=== PATIENT | male | born 1950 ===

== ENCOUNTER 2018-06-27 00:31 | Inpatient (IN) | payer SELFPAY ==
[2018-06-27] MEDS ORDERED: KETAMINE 100 MG/ML (5ML VIAL) ONE (00:42)
[2018-06-27] MEDS ORDERED: Rocuronium Bromide 10 MG/ML (10ML VIAL) ONE (00:42)
[2018-06-27 00:45] LABS: Hemoglobin 6.9 g/dL (14.0-18.0); Mean Corpuscular HGB CONC 28.7 g/dL (32.0-36.0); Mean Corpuscular Hemoglobin 19.4 pg (27.0-31.0); Mean Corpuscular Volume 67.6 fL (78.0-98.0); Mean Platelet Volume 9.2 fL (7.4-10.4); Platelet Count 446 thou/uL (130-400); RBC Distribution Width 16.3 % (11.5-14.5); Red Blood Cell (RBC) Count 3.56 mill/uL (4.70-6.10); White Blood Cell (WBC) Count 10.3 thou/uL (4.8-10.8)
[2018-06-27] MEDS ORDERED: DOPamine 400 MG/D5W 250 ML 0 ML ONE (00:47)
[2018-06-27] MEDS ORDERED: Atropine Sulfate 1 mg/10 ml Syringe ONE (00:47)
[2018-06-27 00:50] LABS: INR-International Normal Ratio 1.1; PTT 31.2 SEC (22.9-36.1); Prothrombin Time 14.4 SEC (12.0-14.7)
[2018-06-27 00:58] LABS: ALT (SGPT) 8 U/L (8-55); AST (SGOT) 12 U/L (5-34); Albumin 3.5 g/dL (3.4-4.8); Alkaline Phosphatase 100 U/L (40-150); Anion Gap 14 mmol/L (10-20); BUN (Urea Nitrogen) 18 mg/dL (8.4-25.7); Bilirubin, Total 0.4 mg/dL (0.2-1.2); CK (CPK) 70 U/L (30-200); Calc. Creatinine Clearance 0 mL/min (70-130); Calcium 8.8 mg/dL (7.8-10.44); Carbon Dioxide 21 mmol/L (23-31); Chloride 105 mmol/L (98-107); Estimated GFR-MDRD 89; Glucose 203 mg/dL (80-115); Potassium 3.6 mmol/L (3.5-5.1); Protein, Total 6.5 g/dL (5.8-8.1); Sodium 136 mmol/L (136-145)
[2018-06-27 01:04] LABS: #Basophils 0.1 thou/uL (0.0-0.2); #Eosinphils 0.7 thou/uL (0.0-0.7); #Lymphocytes 1.7 thou/uL (1.20-3.40); #Neutrophils 6.8 thou/uL (1.40-6.50); %Basophils 0.8 % (0.0-1.0); %Eosinophils 6.7 % (0.0-10.0); %Lymphocytes 16.7 % (21.0-51.0); %Monocytes 9.8 % (0.0-10.0); %Neutrophils 65.9 % (42.0-75.0); Anisocytosis SLIGHT = 6-15 cells (100X) (0-5/hpf); Hypochromia MODERATE=16-30 cells (100X) (0-5/hpf); MDiff Complete? YES; Microcytosis SLIGHT = 6-15 cells (100X) (0-5/hpf); Reflex for Review?? YES
[2018-06-27 01:36] LABS: CKMB 2.1 ng/mL (0-6.6)
[2018-06-27] MEDS ORDERED: Heparin 10,000 UNITS/1 ML VIAL ONE ×2 (01:47→03:37)
[2018-06-27] MEDS ORDERED: Norepinephrine 4 MG/4 ML VIAL ONE ×2 (01:48→01:53)
[2018-06-27] MEDS ORDERED: Heparin 25,000 units/D5W 500 ML ONE (02:22)
[2018-06-27] MEDS ORDERED: TICAGRELOR 90 MG TABLET ONE (02:37)
[2018-06-27 03:29] LABS: Actual Bicarbonate (HCO3a) 16.2 mEq/L (22-28); Base Excess (BEa) -10.1 mEq/L (-2.0 to +3.0); CO2 Tension 37.1 mmHg (35.0-45.0); Calcium, Ionized 1.08 mmol/L (1.12-1.30); Carboxyhemoglobin (COHb) 1.3 gm% (0.0-3.0); Hemoglobin (Hb) 9.1 g/dL (14.0-18.0); O2 Tension (PaO2) 87.6 mmHg (> 80.0); Potassium - ABG Lab 3.47 mmol/L (3.70-5.30); pH, Arterial 7.26 (7.35-7.45)
[2018-06-27] MEDS ORDERED: Lorazepam 2 MG/ML VIAL SLOW IVP PRN (03:39)
[2018-06-27] MEDS ORDERED: Morphine 2 MG/ML SYRINGE SLOW IVP PRN (03:39)
[2018-06-27] MEDS ORDERED: Propofol 1,000 MG/100 ML VIAL IV PRN (03:39)
[2018-06-27] MEDS ORDERED: Fentanyl CADD 250 ML IVPB SCH (03:39)
[2018-06-27] MEDS ORDERED: DISCONTINUE PREVIOUS NARCOTIC PAIN MEDICATIONS AND BENZODIAZEPINES FS SCH (03:39)
[2018-06-27] MEDS ORDERED: Fentanyl BOLUS 250 ML IVPB PRN (03:39)
[2018-06-27] MEDS ORDERED: fentaNYL Citrate/PF 2,000 MCG in Sodium Chloride 0.9% 60 ML IV SCH (03:39)
[2018-06-27] MEDS ORDERED: Propofol BOLUS 1,000 MG/100 ML VIAL IV PRN (03:39)
[2018-06-27] MEDS ORDERED: Dextrose 50% Abboject 50 ML SYRINGE IVP PRN (03:41)
[2018-06-27] MEDS ORDERED: Dextrose 5% in Water 1,000 ML IV PRN (03:41)
[2018-06-27] MEDS ORDERED: Insulin Regular 300 UNITS/3 ML VIAL SC PRN ×2 (03:41)
[2018-06-27] MEDS ORDERED: Norepinephrine 8 MG/250 ML BAG IVPB PRN (03:41)
[2018-06-27] MEDS ORDERED: Pantoprazole 80 MG, Admixture Fee 1 EACH in Sodium Chloride 0.9% 100 ML IVP SCH (03:45)
[2018-06-27] MEDS ORDERED: Sodium Chloride 0.9% 1,000 ML IV SCH (03:45)
[2018-06-27] MEDS ORDERED: Heparin 10,000 UNITS/ 10 ML VIAL SLOW IVP SCH (03:45)
[2018-06-27] MEDS ORDERED: Amiodarone 450 MG, Admixture Fee 1 EACH in Dextrose 5% in Water 250 ML IVPB SCH (03:45)
[2018-06-27] MEDS ORDERED: Heparin 25,000 units/D5W 500 ML IV SCH (03:45)
[2018-06-27] MEDS ORDERED: EPINEPHrine 1 MG/10 ML Abboject SYRINGE ONE ×2 (04:00→15:29)
[2018-06-27] MEDS ORDERED: Lidocaine 2% PF 100 mg/5 ml Syringe ONE ×2 (04:00→15:29)
[2018-06-27 04:05] LABS: ALV-art Gradient 579.025 (0-20); Puncture Site LINE
[2018-06-27 04:14] VITALS: BMI 29.0
[2018-06-27 04:39] LABS: Anisocytosis SLIGHT = 6-15 cells (100X) (0-5/hpf); Band 7 % (5-11); Hemoglobin 8.5 g/dL (14.0-18.0); Hypochromia MODERATE=16-30 cells (100X) (0-5/hpf); Lymphocytes 2 % (21-51); MDiff Complete? YES; Mean Corpuscular HGB CONC 29.4 g/dL (32.0-36.0); Mean Corpuscular Hemoglobin 21.8 pg (27.0-31.0); Mean Corpuscular Volume 74.1 fL (78.0-98.0); Mean Platelet Volume 9.4 fL (7.4-10.4); Microcytosis SLIGHT = 6-15 cells (100X) (0-5/hpf); Monocytes 6 % (0-10); Neutrophil 85 % (42-75); Platelet Count 345 thou/uL (130-400); RBC Distribution Width 21.1 % (11.5-14.5); White Blood Cell (WBC) Count 28.3 thou/uL (4.8-10.8)
[2018-06-27 04:48] LABS: ALT (SGPT) 21 U/L (8-55); AST (SGOT) 35 U/L (5-34); Albumin 3.3 g/dL (3.4-4.8); Alkaline Phosphatase 116 U/L (40-150); Anion Gap 17 mmol/L (10-20); BUN (Urea Nitrogen) 20 mg/dL (8.4-25.7); Bilirubin, Total 0.8 mg/dL (0.2-1.2); Calc. Creatinine Clearance 91 mL/min (70-130); Calcium 8.1 mg/dL (7.8-10.44); Carbon Dioxide 15 mmol/L (23-31); Chloride 106 mmol/L (98-107); Estimated GFR-MDRD 75; Globulin 2.8 g/dL (2.4-3.5); Glucose 385 mg/dL (80-115); Potassium 3.7 mmol/L (3.5-5.1); Protein, Total 6.1 g/dL (5.8-8.1); Sodium 134 mmol/L (136-145)
[2018-06-27 04:54] LABS: Troponin I 0.328 ng/mL (< 0.028)
[2018-06-27] MEDS ORDERED: Magnesium 5 GM/10 ML Abboject SYRINGE ONE ×3 (06:07→15:29)
[2018-06-27] MEDS ORDERED: EPINEPHrine 1 MG/ML AMP ONE (06:54)
--- NOTE | 2018-06-27 07:01 | CON ---
DATE OF CONSULTATION: 06/27/2018 INDICATION FOR ADMISSION: This is a 68-year-old gentleman, supposed to have an acute myocardial infarction, brought in from an outside facility. I think he was picked up at home. According to the real estate manager, he did have EKG changes, ST-segment elevation anterolaterally with acute ST-segment elevation en route. When the patient arrived here, he went into ventricular fibrillation and required multiple shocks and did undergo CPR in the emergency room. The patient is now intubated. According to his family, he does have a history of alcohol use. He also has a history of tobacco abuse, he uses marijuana not regular cigarettes, and also has a history of diabetes, for which he has been noncompliant with his medications. He does have chronic pain, which is neurologic in nature of uncertain etiology. He may have fibromyalgia or some other type of nerve disorder; however, he has had no previous cardiac history that we are aware of. He has suffered occasional intermittent atrial fibrillation according to the family, but does not take any medications for this. This evening at home, he was up, which was not unusual for him, up and down throughout the night and he told his he would call 911 and in the event ambulance picked him up and was supposed he was not feeling well. She is uncertain whether or not he was actually having any chest pain. The patient did appear very pale when he arrived to the emergency room and hemoglobin was 6.9. PAST MEDICAL HISTORY: Significant for atrial fibrillation, chronic nerve pain, sciatica, benign prostatic hypertrophy, appendectomy, diabetes. He has a history of anemia. ALLERGIES: HE HAS HAD QUESTIONABLE ALLERGY TO CODEINE BECAUSE IT DOES NOT MAKE HIM FEEL WELL. MEDICATIONS: Metformin and topiramate. He has not been taking the metformin, nor the very low dose of topiramate apparently because he says it makes him feel sick and nauseated. He does not take the medications. He also does not take aspirin or any other prescribed medications. REVIEW OF SYSTEMS: According to the family, he has occasional headaches. He has occasional nausea. He has peripheral neuropathy and chronic pain. Otherwise, there was no complaints on the review of systems. PHYSICAL EXAMINATION: GENERAL: Reveals a very pale appearing middle-aged gentleman, who has urinated on himself. He is intubated at this time. He does not appear to be uncomfortable , is not agitated, but is sedated apparently on the ventilator. VITAL SIGNS: His vital signs have been fluctuating. Blood pressure is anywhere between 70/60 and then increased up to when he arrived, I believe his blood pressure was in the 110s systolically. His heart rate is in the 120s when he arrived to the emergency room at least when I first saw the first EKG. He has been given some epinephrine during the code. He also has been given amiodarone. He has not been given any heparin that I know of, at least we cannot determine also from the records. HEENT: His pupils are medium-sized, but are not reactive very much. CHEST: He does have coarse rales throughout, this may be due to the previous or recent CPR. CARDIOVASCULAR: At this time, I do not hear any gross murmurs, he has a slight tachycardia, but otherwise appears to be regular. No indication of atrial fibrillation. ABDOMEN: Soft and nontender. I do not see any masses. Femoral pulses are present. EXTREMITIES: Very pale, also has pedal pulses. NEUROLOGIC: The patient is either sedated or neurologically has encephalopathy. LABORATORY DATA: Have a hemoglobin of 6.9. Blood sugar was less I believe is around 200 and renal function was within normal limits. At this time, I explained to the that the only way we can determine whether or not he is having any significant coronary artery disease that would cause his ventricular fibrillation would be to proceed with cardiac catheterization. We will take him to the cardiac cytology laboratory manager emergently to proceed with cardiac catheterization. I have explained to her the procedure, the risks, which include the bleeding, obviously possibility of CVA, allergic contrast reaction, or even the possibility of and she understands that we will proceed with cardiac catheterization. IMPRESSION: 1. Probable acute myocardial infarction, uncertain of vessel which is involved.Plan for emergency cardiac cath. 2. Severe anemia, the etiology of the anemia is also unknown. 3. Diabetes, which is uncontrolled. 4. History of illicit drug use, which includes marijuana. 5. Chronic nerve pain. Job ID: [id number] [facility]
[2018-06-27 07:35] VITALS: TEMP 94.1
--- NOTE | 2018-06-27 08:37 | RAD ---
SINGLE VIEW CHEST: HISTORY: Endotracheal tube placement for respiratory failure. COMPARISON: 06/27/2018 FINDINGS: A single view of the chest shows an enlarged but stable cardiomediastinal. The endotracheal tube and NG tube are unchanged in position. There is obscurity of the right hemidiaphragm, which may represe nt a small right pleural effusion. IMPRESSION: Possible small right pleural effusion. POS: [facility]
--- NOTE | 2018-06-27 08:49 | RAD ---
CHEST ONE VIEW: INDICATIONS: Chest pain. COMPARISON: None. FINDINGS: The patient is intubated with an ET tip seen 3 cm above the level of the jammie. A gastric catheter projects below the left hemidiaphragm and beyond the field of view. There is mild cardiomegaly and p ulmonary vascular congestion. There are pacer pads overlying the chest wall. No pneumothorax is agus dent. IMPRESSION: 1. Endotracheal tube and gastric catheter. 2. Mild congestive heart failure. POS: [facility]
[2018-06-27] MEDS ORDERED: Carvedilol 3.125 MG TAB PO SCH (09:00)
[2018-06-27] MEDS ORDERED: Lisinopril 2.5 MG TAB PO SCH (09:00)
[2018-06-27] MEDS ORDERED: TICAGRELOR 90 MG TABLET PO SCH (09:00)
[2018-06-27] MEDS ORDERED: Aspirin 81 mg Enteric Coated Tablet PO SCH (09:00)
[2018-06-27] MEDS ORDERED: Iopamidol 370 76% 100 ML VIAL ONE (10:10)
[2018-06-27] MEDS ORDERED: Iopamidol 370 76% 50 ML VIAL FS ONE (10:10)
[2018-06-27] MEDS ORDERED: Sodium Bicarb 50 MEQ/50 ML Abboject 8.4% SYRINGE ONE (15:29)
[2018-06-27] MEDS ORDERED: Amiodarone 150 MG/3 ML VIAL ONE (15:29)
[2018-06-27] MEDS ORDERED: Calcium Chloride 1 GM/10 ML Abboject SYRINGE ONE (15:29)
[2018-06-27] MEDS ORDERED: Lidocaine 2 gm/D5W 500ML PREMIX BAG ONE (15:29)
--- NOTE | 2018-06-27 18:46 | DIS ---
DATE OF ADMISSION: 06/27/2018 DATE OF DISCHARGE: 06/27/2018 HOSPITAL COURSE: Mr. Montalvo was a very unfortunate 68-year-old gentleman, who was admitted via the emergency room on 06/27/2018, suffering a large anterior myocardial infarction. He was taken to the cardiac sanitation laborer. Once he was stabilized, he was shocked several times in the emergency room, where he also underwent CPR. 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 This was opened and stent was placed. He also was noted to have a 90% stenosis of the distal right coronary artery. He had 2 separate ostium for the left anterior descending on the left circumflex system. The left circumflex system did not have any significant stenosis. Prior to leaving the cardiac sanitation laborer, the patient again developed EKG changes. He did stabilize once we did open the left anterior descending artery on EKG did improve; however, he then developed repeat EKG changes while in the cardiac sanitation laborer. He was then re-evaluated and was noted that the left anterior descending artery had in-stent thrombosis and I repeated the angioplasty and had good flow down the vessel. The patient was then increased the dose of the heparin. He was given almost approximately 10,000 units of heparin in the cardiac sanitation laborer, was also given Brilinta. Prior to the beginning of the procedure, his hemoglobin had been 6.9. He was given 2 units of packed red blood cells in the sanitation laborer and another 2 additional units were ordered. He then was transferred to the Intensive Care Unit after he was stabilized in the cardiac sanitation laborer and EKG had stabilized also. When he was in the Intensive Care Unit apparently around 5 o'clock in the morning, he developed torsades and went into ventricular fibrillation and required cardioversion again additional 2 times and underwent CPR. It was discussed with the family by the nursing staff, it was agreed that no further CPR would be undertaken and the patient was then pronounced at approximately 6:17 a.m. this morning. IMPRESSION: Acute anterior myocardial infarction, large anterior myocardial infarction with history of diabetes, history of noncompliance, and chronic pain. The cause of was due to large anterior myocardial infarction and continued ventricular fibrillation and congestive heart failure. Job ID: [id number] [facility]
--- NOTE | 2018-06-30 13:29 | PQF ---
Emil Montalvo G JEAN MD [id number] CLINICAL DOCUMENTATION CLARIFICATION FORM: POST DISCHARGE Addendum to original discharge summary date: ____ Late entry note date: __ DATE: 06/30/18 ATTN: Dr. Nicole, Please exercise your independent, professional judgment in responding to the clarification form. Clinical indicators are provided on the bottom of this form for your review Please check appropriate box(s): [ X ] Acute Respiratory Failure: [ ] with Hypoxia [ ] with Hypercapnia [ ] Acute On Chronic Respiratory Failure: [ ] with Hypoxia [ ] with Hypercapnia [ ] Acute Respiratory Failure due to: (etiology) [ ] Chronic Respiratory Failure only [ ] with Hypoxia [ ] with Hypercapnia [ ] Other diagnosis [ ] Unable to determine In addition, please specify: Present on Admission (POA): [X ] Yes [ ] No [ ] Unable to determine For continuity of documentation, please document condition throughout progress notes and discharge summary. Thank You. CLINICAL INDICATORS - SIGNS / SYMPTOMS / LABS Respiratory Effort--Labored---06/27 ED physician note Respiratory-In moderate distress--06/27 ED physician note RISK FACTORS Acute anterior STEMI--Discharge Summary Hypertension--H&P Cardiac Arrest--06/27 ED note CHF--Discharge Summary Patient currently uses tobacco, daily--06/27 ED physician note TREATMENTS: Endotracheal intubation with mechanical ventilation--06/27 ED physician note Continuous Pulse oximetry--06/27 ED physician note Thank you, Diandra Castellano, [facility] 06/30/18 1:26PM (This form is maintained as a part of the permanent medical record) 2014 [employer]. All Rights Reserved Diandra [email or web address] [phone] [facility]
--- NOTE | 2018-06-30 13:42 | PQF ---
Emil Montalvo G JEAN MD [id number] CLINICAL DOCUMENTATION CLARIFICATION FORM: POST DISCHARGE Addendum to original discharge summary date: ____ Late entry note date: __Acute anterior AZ, decreased EF,severe Anemia, resp. failure. DM, noncompliance with medical therapy prior to admission. DATE: 06/30/18 ATTN: Dr. Nicole, Please exercise your independent, professional judgment in responding to the clarification form. Clinical indicators are provided on the bottom of this form for your review Please check appropriate box(s): HEART FAILURE: A. TYPE: [ X ] Systolic / HFrEF [ ] Diastolic / HFpEF [ ] Combined Systolic / Diastolic B. ACUITY [ X ] Acute [ ] Acute on Chronic [ ] Chronic [ ] Other diagnosis ___Anemia, DM [ ] Unable to determine In addition, please specify: Present on Admission (POA): [ X ] Yes [ ] No [ ] Unable to determine For continuity of documentation, please document condition throughout progress notes and discharge summary. Thank You. CLINICAL INDICATORS - SIGNS / SYMPTOMS / LABS SOB/SMALL--06/27 H&P Mild congestive heart failure--06/27 Chest x-ray Congetive heart failure---Discharge Summary RISKS: Acute anterior [place]--Discharge Summary Hypertension--H&P Ventricular Fibrillation--06/27 ED physician note TREATMENTS: Administration of SARA, beta blockers--06/27 Cardiac Diagnostic + PCI Report Cardiac monitoring / telemetry--ordered 06/27 Thank you, Diandra Castellano, [facility] 06/30/18 1:40PM (This form is maintained as a part of the permanent medical record) 2014 [employer]. All Rights Reserved Diandra [email or web address] [phone] [facility]
== END 2018-06-27 06:17 | disposition expired | DRG 248 ==
LOC: ERS 00:31 → SDC 01:02 → MERGE 02:00 → CCU 02:00
PROVIDERS: ADMIT Internal Medicine Cardiovascular Disease; ATTEND Internal Medicine Cardiovascular Disease
PROC: 02703DZ Dilation of Coronary Artery, One Artery with Intraluminal Device, Percutaneous Approach (ICD-10-PCS; principal; 2018-06-27)
PROC: 02703ZZ Dilation of Coronary Artery, One Artery, Percutaneous Approach (ICD-10-PCS; 2018-06-27)
PROC: 5A2204Z Restoration of Cardiac Rhythm, Single (ICD-10-PCS; 2018-06-27)
PROC: 0BH17EZ Insertion of Endotracheal Airway into Trachea, Via Natural or Artificial Opening (ICD-10-PCS; 2018-06-27)
PROC: 5A1935Z Respiratory Ventilation, Less than 24 Consecutive Hours (ICD-10-PCS; 2018-06-27)
PROC: 4A023N7 Measurement of Cardiac Sampling and Pressure, Left Heart, Percutaneous Approach (ICD-10-PCS; 2018-06-27)
PROC: B2111ZZ Fluoroscopy of Multiple Coronary Arteries using Low Osmolar Contrast (ICD-10-PCS; 2018-06-27)
PROC: 30233N1 Transfusion of Nonautologous Red Blood Cells into Peripheral Vein, Percutaneous Approach (ICD-10-PCS; 2018-06-27)
PROC: 3E033XZ Introduction of Vasopressor into Peripheral Vein, Percutaneous Approach (ICD-10-PCS; 2018-06-27)
DX: I21.09 ST elevation (STEMI) myocardial infarction involving other coronary artery of anterior wall (principal); I50.21 Acute systolic (congestive) heart failure; J96.00 Acute respiratory failure, unspecified whether with hypoxia or hypercapnia; T82.855A Stenosis of coronary artery stent, initial encounter; T82.867A Thrombosis due to cardiac prosthetic devices, implants and grafts, initial encounter; I11.0 Hypertensive heart disease with heart failure; I49.01 Ventricular fibrillation; I46.9 Cardiac arrest, cause unspecified; I45.81 Long QT syndrome; D64.9 Anemia, unspecified; E11.9 Type 2 diabetes mellitus without complications; Z91.14 Patient's other noncompliance with medication regimen; Y83.8 Other surgical procedures as the cause of abnormal reaction of the patient, or of later complication, without mention of misadventure at the time of the procedure; E78.00 Pure hypercholesterolemia, unspecified; I25.10 Atherosclerotic heart disease of native coronary artery without angina pectoris; F12.10 Cannabis abuse, uncomplicated; I48.91 Unspecified atrial fibrillation; M54.30 Sciatica, unspecified side; N40.0 Benign prostatic hyperplasia without lower urinary tract symptoms; G62.9 Polyneuropathy, unspecified; Z88.8 Allergy status to other drugs, medicaments and biological substances; Z79.899 Other long term (current) drug therapy; Z79.84 Long term (current) use of oral hypoglycemic drugs; Z72.0 Tobacco use; Z82.49 Family history of ischemic heart disease and other diseases of the circulatory system
CPT/HCPCS: 31500; 36415; 36430; 51702; 71045; 80053; 82550; 82553; 82805; 84484; 85025; 85060; 85347; 85610; 85730; 86850; 86900; 86901; 92928; 92950; 92960; 93005; 93010; 93454; 94002; 96374; 96375; 96376; C1725; C1769; C1876; C1887; C9113; J0171; J0282; J0461; J1265; J1644; J2001; J3010; J3475; J7050; J7070; P9016; Q9967